=== PATIENT | female | born 1935 | race Caucasian/White ===

== ENCOUNTER 2017-10-07 09:52 | Outpatient (CLI) | payer MEDICARE ==
--- NOTE | 2017-10-07 12:01 | RAD ---
LEFT RIBS THREE VIEWS: History: 82-year-old female with history of left rib pain following a fall. FINDINGS: Densely calcified bilateral breast augmentation prosthesis. Atherosclerosis of the aorta with ectasia . Left ICD. No pneumothorax or pleural effusion. Increased density in the retrocardiac region, eviden ce for hiatal hernia. No evidence for an acute rib fracture. IMPRESSION: No evidence for an acute rib fracture. No pneumothorax or pleural effusion. Evidence for hiatal herni a. Mild vertical height loss of T12 vertebral body, age indeterminate. POS: JOHN
--- NOTE | 2017-10-07 12:21 | CT ---
PELVIS CT WITHOUT IV CONTRAST INCLUDING EVALUATION OF THE LEFT HIP: Date: 10/07/17 HISTORY: 82-year-old female with history of left hip pain following a fall. FINDINGS: There is a 4.3 x 10.1 cm diameter soft tissue hematoma in the posterior left lower flank overlying th e left iliac crest region. There is heterogeneous bony demineralization. No evidence for an acute pel pam fracture. No evidence for left femur fracture. IMPRESSION: Large superficial subcutaneous posterolateral hematoma on the left side. No pelvic or hip or femur fr acture. Generalized bony demineralization. Lumbar spine spondylosis. POS: EDSON
--- NOTE | 2017-10-09 14:07 | CT ---
PELVIS CT WITHOUT IV CONTRAST INCLUDING EVALUATION OF THE LEFT HIP: CT LOWER EXT WO: Date: 10/07/17 HISTORY: 82-year-old female with history of left hip pain following a fall. FINDINGS: There is a 4.3 x 10.1 cm diameter soft tissue hematoma in the posterior left lower flank overlying th e left iliac crest region. There is heterogeneous bony demineralization. No evidence for an acute pel pam fracture. No evidence for left femur fracture. IMPRESSION: Large superficial subcutaneous posterolateral hematoma on the left side. No pelvic or hip or femur fr acture. Generalized bony demineralization. Lumbar spine spondylosis.
== END 2017-10-07 09:53 | disposition home or self-care (01) ==
LOC: CT 09:52
PROVIDERS: ATTEND Physical Medicine & Rehabilitation
DX: R10.2 Pelvic and perineal pain (principal); W19.XXXA Unspecified fall, initial encounter; M25.552 Pain in left hip; R07.81 Pleurodynia; M47.896 Other spondylosis, lumbar region; S70.02XA Contusion of left hip, initial encounter; K44.9 Diaphragmatic hernia without obstruction or gangrene; M85.80 Other specified disorders of bone density and structure, unspecified site
CPT/HCPCS: 72192